=== PATIENT | female | born 2000 | race African-American/Black ===

== ENCOUNTER 2020-05-04 14:07 | Emergency (ER) | payer MEDICAID, SELFPAY ==
[2020-05-04 14:34] VITALS: BP 101/69; PULSE 90; RESP 18; TEMP 37.1; O2SAT 99; BMI 29.9
--- NOTE | 2020-05-04 15:33 | PC.NURSE ---
AP PERFORMING EYE EXAM WITH TETRACAINE DROPS AND WATSON LAMP. NO LACERATION NOTED.
[2020-05-04] MEDS: tetracaine 0.5% Op Soln 4 mL Btl 1 DROP EYE-RIGHT (15:42)
[2020-05-04] MEDS: fluorescein 1 mg Strip EYE-RIGHT (15:42)
[2020-05-04] MEDS: eye irrigation 30 mL Btl EYE-BOTH (15:42)
[2020-05-04 15:43] VITALS: BP 102/70; PULSE 88; RESP 17; O2SAT 99
--- NOTE | 2020-05-04 18:42 | W.ED.EYEPROB ---
HPI - Eye Problem General: Chief complaint: Eye Problems Stated complaint: HAD SEIZURE 2 DAYS AGO & INJURED L EYE Time Seen by Provider: 05/04/20 14:29 History of Present Illness: HPI Narrative: 20-year-old female patient presents to the emergency department with left eye issue. Mother reports she has intractable seizures, is monitored by seizure specialist in [place]. Last reported seizure 2 days ago. Mother reports she fell back hit her head. She has not deviated from neurological baseline. Mother reports concern of left eye issue, afraid she may have hurt her eye during the seizure. chief complaint: eye redness and eye injury (Questionable) Onset (ago): day(s) (2) Onset description: sudden Location: left eye Eye Symptoms: redness and pain Place: home Mechanism: direct trauma Severity: mild Severity scale (1-10): 2 Associated symptoms: Reports no associated symptoms; Denies fever(s), headache(s), nausea or vomiting Review of Systems General: Reports: 10 or more systems reviewed and unremarkable except in HPI and below Const: Denies: fever(s), chills or diaphoresis Eyes: Denies: blurry vision or eye redness ENMT: Denies: throat pain, dental pain or disequilibrium Card: Denies: chest pain, palpitations or irregular heart rhythm Resp: Denies: dyspnea, productive cough, non-productive cough or wheezing GI: Denies: abdominal pain, nausea or vomiting : Denies: difficulty voiding or dysuria Musc: Denies: back pain Skin/Breast: Denies: rash or pruritus Neuro: Denies: headache(s), weakness in extremities or behavioral changes Dre/Lymph: Denies: easy bruising Physical Exam Const: COMMON NORMALS: no acute distress, patient oriented x3, healthy appearing and alert GENERAL APPEARANCE: cooperative, comfortable and well hydrated HENMT: COMMON NORMALS: normocephalic, atraumatic, EAC's normal, TM's normal bilaterally, Normal external nose present, Normal nasal mucous membranes and turbinates present and moist oral mucous membranes HEAD & SCALP: normocephalic and atraumatic NOSE: Normal external nose present and Normal nasal mucous membranes and turbinates present EXTERNAL AUDITORY CANAL: EAC's normal TYMPANIC MEMBRANE: TM's normal bilaterally Eye: COMMON NORMALS: Equal, round and reactive pupils present, EOMs intact bilaterally and conjunctivae normal GENERAL EYE: appearance normal, both eyes and all related structures PERIORBITAL: periorbital findings abnormal (Left upper eyebrow with slight swelling, nontender, no erythema) positive left EYELID: eyelids normal (External) CONJUNCTIVA: Yes conjunctivae normal SCLERA: sclerae normal CORNEA: Yes corneas normal, fluorescein used (Negative corneal abrasion noted) and other (Chalazon noted with inverted left eyelid exam, small, negative erythema or purulent drainage) PUPIL: Yes Equal, round and reactive pupils present DIRECT OPHTHALMOSCOPY: No photophobia Neck/C-Spine: COMMON NORMALS: full ROM and no lymphadenopathy GENERAL: Yes normal visual inspection and Yes trachea midline CERVICAL SPINE: Yes cervical ROM normal Lymph: LYMPHATIC: no lymphadenopathy noted Chest: COMMONS NORMALS: normal inspection of the chest Resp: COMMON NORMALS: normal respiratory effort and clear to auscultation bilaterally AUSCULTATION: clear to auscultation bilaterally Cardio: COMMON NORMALS: regular rhythm, S1 normal heart sound present and S2 normal heart sound present RHYTHM: regular rhythm HEART SOUNDS: S1 normal heart sound present and S2 normal heart sound present GI: COMMON NORMALS: Soft to palpation and non-tender INSPECTION: Yes normal to inspection PALPATION: Yes Soft to palpation : COMMON NORMALS: Yes no CVA tenderness BLADDER/KIDNEY EXAM: Yes no CVA tenderness Back/Pelvis: COMMON NORMALS: no CVA tenderness and thoracic and lumbar spine normal to inspection Extremity: COMMON NORMALS: normal to inspection and capillary refill normal Neuro: COMMON NORMALS: patient oriented x3 and no focal motor deficits SENSORIUM/ORIENTATION: Yes alert Psych: COMMON NORMALS: mental status grossly normal, Normal thought process present and cooperative ACTIVITY/MOTOR BEHAVIOR: Yes appropriate eye contact THOUGHT PROCESS: Normal thought process present Skin: COMMON NORMALS: no rashes or lesions noted and turgor normal GENERAL SKIN EXAM: no rashes or lesions noted and turgor normal Course ED course: 20-year-old female patient presents to the emergency department with left eye concern. Mother reports patient experienced seizure 2 days ago, noted left upper eyebrow swelling, negative fluorescein stain, negative corneal abrasion, left eyelid with small chalazon with negative erythema or drainage. Placed on polymyxin B drops, advised follow-up if not improved, mother verbalized understanding. Patient has longstanding history of intractable seizures. She is on numerous anti-seizure medications, mother reports does not need serology values completed as she has a seizure specialist. Her mother has no further concerns, she remains at baseline neurologically, patient is nonverbal, cared for by her mother. Vital Signs: Vital signs: Vital Signs Temperature 98.8 F 05/04/20 14:34 Pulse Rate 88 05/04/20 15:43 Respiratory Rate 17 05/04/20 15:43 Blood Pressure 102/70 05/04/20 15:43 Pulse Oximetry 99 05/04/20 15:43 Discharge Plan Discharge Patient Disposition: Home Clinical Impression: Intractable generalized seizure disorder, Chalazion left upper eyelid Condition: Stable Prescriptions: New polymyxin B sulf-trimethoprim 10,000 unit- 1 mg/mL drops 1 drop ophthalmic (eye) QID 7 Days Qty: 10 RF: 0 Discharge Orders: Discharge Order (Routine); Ordered 05/04/20 Ordered By: Lori Lilly Patient Instructions: Chalazion (ED), Epilepsy (ED) Activity Restrictions/Additional Instructions: Warm compresses to the left eye several times daily Continue use of eyedrops for full 7 days Return to the emergency department if you develop redness of the orbit of the eye, pain with eye movement or decreased vision of the left eye Continue follow-up with seizure specialist Discharge Date/Time: 05/04/20 15:48 Coding Level of Care Code ED Refrigerating Engineer Head for Shani Ybarra
== END 2020-05-04 15:48 | disposition home or self-care (01) ==
PROVIDERS: Emergency Provider Nurse Practitioner Family
DX: G40.419 Other generalized epilepsy and epileptic syndromes, intractable, without status epilepticus (principal); H00.14 Chalazion left upper eyelid
CPT/HCPCS: 12345; 99282

== ENCOUNTER 2021-12-11 14:24 | Emergency (ER) | payer MEDICAID, SELFPAY ==
[2021-12-11 14:26] VITALS: BP 114/78; PULSE 73; RESP 18; TEMP 36.4; O2SAT 100; BMI 28.3
--- NOTE | 2021-12-11 14:46 | CT_ITS ---
WS: [id number] CT LUMBAR SPINE, noncontrast. HISTORY: fall TECHNIQUE: Contiguous 2.5 mm axial imaging are performed. Sagittal and coronal reformats are submitte d and reviewed. All CT scans at [facility] use at least one of these dose optimization techni ques: automated exposure control; mA and/or kV adjustment per patient size (includes targeted exams w here dose is matched to clinical indication); or iterative reconstruction. IV contrast: None DLP: 1819.89 mGy.cm COMPARISON: None available. Normal lumbar alignment with no loss of disc space height or vertebral body height. L1-2: Normal. L2-3: Normal. L3-4: Normal. L4-5: Normal. L5-S1: Very shallow RIGHT foraminal disc protrusion. No stenosis. Visualized retroperitoneum is normal. CT/CT lumbar spine wo con* [id number] IMPRESSION: No acute lumbar spine fracture.
--- NOTE | 2021-12-11 14:46 | CT_ITS ---
WS: [id number] CT HEAD NONCONTRAST HISTORY: Headache. Fall from 5 foot ladder. TECHNIQUE: Contiguous axial imaging performed through the brain in 2.5 mm imaging. Bone and soft tiss ue windows. Sagittal and coronal reformats reviewed. All CT scans at [facility] use at least one of these dose optimization techniques: automated exposure control; mA and/or kV adjustment per pa tient size (includes targeted exams where dose is matched to clinical indication); or iterative recon struction. DLP: 939.56 mGy.cm COMPARISON: None available. No acute intracranial hemorrhage, midline shift or mass effect. Focal area of atrophy and encephalomalacia within the LEFT temporal lobe. By history patient had prio r surgery and has been treated for a brain neoplasm. Mild volume loss in the LEFT cerebrum. Ventricles: No hydrocephalus. There is mild dilatation of the LEFT lateral ventricle due to the ence phalomalacia. Paranasal sinuses: As visualized are clear. Mastoid air cells: Well pneumatized. Calvarium and scalp: Postsurgical changes and craniotomy LEFT temporal bone. Additional postsurgical changes adjacent to the RIGHT temporal bone. CT/CT head wo con* [id number] IMPRESSION: 1. No acute intracranial hemorrhage or edema. 2. Postoperative changes with encephalomalacia LEFT temporal lobe. No mass eff ect.
--- NOTE | 2021-12-11 14:46 | CT_ITS ---
WS: [id number] CT THORACIC SPINE HISTORY: fall TECHNIQUE: Contiguous 2.5 mm axial images are reviewed to thoracic spine. Images are reformatted in s agittal and coronal planes. All CT scans at [facility] use at least one of these dose optimiz ation techniques: automated exposure control; mA and/or kV adjustment per patient size (includes targ eted exams where dose is matched to clinical indication); or iterative reconstruction. DLP: 2124.89 mGy.cm COMPARISON: None available. Normal thoracic alignment. No fractures. Disc spaces are well preserved. Spinous processes and transv erse processes are intact. No central or foraminal stenosis or acute-appearing disc herniations. Para vertebral soft tissues are normal. CT/CT thoracic spin wo con* [id number] IMPRESSION: Negative thoracic spine CT. No fracture.
--- NOTE | 2021-12-11 14:46 | CT_ITS ---
WS: [id number] CT CERVICAL SPINE HISTORY: fall TECHNIQUE: Contiguous 2.5 mm axial imaging performed through the entire cervical spine. Sagittal and coronal reformats also performed. All CT scans at [facility] use at least one of these dose o ptimization techniques: automated exposure control; mA and/or kV adjustment per patient size (include s targeted exams where dose is matched to clinical indication); or iterative reconstruction. DLP: 724.07 mGy.cm COMPARISON: None available. Normal cervical alignment. Craniocervical junction, atlantodental interval and C1-C2 alignment is nor mal. C2-C3: Normal. C3-C4: Moderate size osteophyte narrowing the RIGHT foramen. Moderate stenosis. C4-C5: Normal. C5-C6: Normal. C6-C7: Normal. C7-T1: Normal. Soft tissues are normal. Lung apices are clear. CT/CT cervical spin wo con* [id number] IMPRESSION: No acute cervical spine fracture.
--- NOTE | 2021-12-11 15:00 | W.ED.FALL ---
HPI - Fall General: Chief Complaint: Fall Stated Complaint: fall/head pain Time Seen by Provider: 12/11/21 14:41 Source: patient Mode of arrival: ambulatory Limitations: no limitations History of Present Illness: 21-year-old female with a history of special needs that caregiver states that she is outside painting and she is trying to get on the ladder she states she climbed up a ladder roughly 3 to 4 feet and fell off into the house and then onto a pile of dirt. Patient has been complaining of slight headache along with neck and back pain. She is currently resting comfortably no other injuries noted she denies any chest or abdominal pain. Associated symptoms-after fall: Reports neck pain; Denies abdominal pain, chest pain or headache(s) Review of Systems Const: Denies: fever(s), chills, body aches or change in appetite Eyes: Denies: blurry vision or eye discomfort ENMT: Denies: throat pain or dental pain Card: Denies: chest pain Resp: Denies: dyspnea GI: Denies: abdominal pain, nausea, vomiting or diarrhea : Denies: dysuria Musc: Reports: neck pain and back pain Skin/Breast: Denies: rash Neuro: Denies: headache(s) Psych: Denies: depression Dre/Lymph: Denies: easy bruising All/Imm: Denies: urticaria Physical Exam Const: COMMON NORMALS: no acute distress and healthy appearing HENMT: COMMON NORMALS: normocephalic and atraumatic HEAD & SCALP: normocephalic and atraumatic Eye: COMMON NORMALS: Equal, round and reactive pupils present and EOMs intact bilaterally PUPIL: Yes Equal, round and reactive pupils present Neck/C-Spine: COMMON NORMALS: full ROM and supple Chest: COMMONS NORMALS: normal inspection of the chest and normal palpation of entire chest wall Resp: COMMON NORMALS: normal respiratory effort, No retractions, No use of accessory muscles and clear to auscultation bilaterally AUSCULTATION: clear to auscultation bilaterally Cardio: COMMON NORMALS: regular rate, regular rhythm and No murmurs present (Cardio) RATE: regular rate RHYTHM: regular rhythm GI: COMMON NORMALS: Normal to inspection, nondistended, normoactive bowel sounds present, Soft to palpation, non-tender and no masses PALPATION: Yes Soft to palpation Extremity: COMMON NORMALS: normal to inspection and full ROM Neuro: COMMON NORMALS: moves all extremities and no focal motor deficits Psych: COMMON NORMALS: mental status grossly normal, Normal thought process present and cooperative THOUGHT PROCESS: Normal thought process present Skin: COMMON NORMALS: no rashes or lesions noted and no wounds GENERAL SKIN EXAM: no rashes or lesions noted Course Vital Signs: Vital signs: Vital Signs Temperature 97.6 F 12/11/21 14:26 Pulse Rate 73 12/11/21 14:26 Respiratory Rate 18 12/11/21 14:26 Blood Pressure 114/78 12/11/21 14:26 Pulse Oximetry 100 12/11/21 14:26 MDM - Fall Medical Decision Making Patient presents here with back pain after a fall she is well-appearing here with no obvious injuries her imaging here is normal patient is amatory she is stable for discharge follow-up with PCP and return if worsening. Lab Data Radiology Impressions Cervical Spine CT 12/11/21 14:46 IMPRESSION: No acute cervical spine fracture. Head CT 12/11/21 14:46 IMPRESSION: 1. No acute intracranial hemorrhage or edema. 2. Postoperative changes with encephalomalacia LEFT temporal lobe. No mass effect. Lumbar Spine CT 12/11/21 14:46 IMPRESSION: No acute lumbar spine fracture. Thoracic Spine CT 12/11/21 14:46 IMPRESSION: Negative thoracic spine CT. No fracture. Discharge Plan Discharge Patient Disposition: Home Clinical Impression: Fall, Lumbar strain Condition: Stable Prescriptions: New Naprosyn 500 mg tablet 500 mg PO BID PRN (Reason: pain) Qty: 20 0RF Discharge Orders: Discharge ED (Routine); Ordered 12/11/21 Ordered By: Ira Bradley Discharge Diet: Advance as tolerated Discharge Activity: Resume usual activity Patient Instructions: Contusion in Adults (ED) Coding Level of Care Code ED [place] [employer] Leader for [employer] Fwd Exam Comprehensive
[2021-12-11] MEDS: HYDROcodone-acetaminophen 5-325 mg Tablet 1 TAB PO (16:04)
== END 2021-12-11 16:17 | disposition home or self-care (01) ==
PROVIDERS: Emergency Provider Emergency Medicine; PCP Psychiatry & Neurology Neurology
DX: S39.012A Strain of muscle, fascia and tendon of lower back, initial encounter (principal); W11.XXXA Fall on and from ladder, initial encounter
CPT/HCPCS: 70450; 72125; 72128; 72131; 99283

== ENCOUNTER 2022-10-21 22:02 | Emergency (ER) | payer MEDICAID, SELFPAY ==
[2022-10-21 22:11] VITALS: BP 103/64; PULSE 114; RESP 16; O2SAT 97
[2022-10-21 23:08] VITALS: RESP 16
[2022-10-21 23:13] LABS: Basophils % 0.2 %; Eosinophils # 0.1 10^3/uL (0.0-0.8); Eosinophils % 1.2 %; Hematocrit 37.4 % (37.0-47.0); Hemoglobin 12.6 g/dL (11.5-15.3); Lymphocytes % 16.2 %; Mean Corpuscular HGB Conc 33.7 g/dL (30.0-36.0); Mean Corpuscular Hemoglobin 29.1 pg (28.0-34.0); Mean Corpuscular Volume 86.4 fl (81-99); Mean Platelet Volume 10.7 fL (7.4-10.4); Monocytes # 0.6 10^3/uL (0.2-0.9); Monocytes % 4.8 %; Neutrophils # 9.37 10^3/uL (1.8-7.7); Neutrophils % 77.3 %; Nucleated Red Blood Cells % 0 %; Platelet Count 248 10^3/cmm (130-400); Red Blood Count 4.33 10^6/uL (4.1-5.3); Red Cell Distribution Width 12.5 % (12.1-15.1); White Blood Count 12.1 10^3/uL (4.0-10.0)
[2022-10-21 23:43] LABS: Alanine Aminotransferase 30 U/L (0-33); Albumin Level 4.1 g/dL (3.5-5.2); Alkaline Phosphatase 70 U/L (35-105); Anion Gap 15.4 (5-19); Aspartate Amino Transferase 18 U/L (0-32); Blood Urea Nitrogen 8 mg/dL (6-20); Calcium 9.1 mg/dL (8.5-10.5); Carbon Dioxide 22 mmol/L (22-29); Chloride 107 mmol/L (98-107); Glomerular Filtration Rate 106.6 mL/min (90-130); Glucose 95 mg/dL (65-115); Osmolality Calculated 290 mOsm/kg (285-295); Potassium 3.4 mmol/L (3.5-5.1); Sodium 141 mmol/L (136-145); Thyroid Stimulating Hormone 0.58 uIU/mL (0.27-4.20); Total Bilirubin 0.4 mg/dL (0.15-1.2); Total Protein 7.1 g/dL (6.6-8.7)
[2022-10-21 23:46] LABS: Acetaminophen < 5.0 ug/mL (10-30); Alcohol Level < 10 mg/dL (0-10); Salicylate < 0.3 mg/dL (3-10)
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
--- NOTE | 2022-10-22 01:56 | PC.NURSE ---
Mother crying in the lucas. Asked if she was okay, mother states, NO! I'm scared that they will seen her home . Provider notified.
[2022-10-22] MEDS: CLONazepam 1 mg Tablet PO (02:01)
[2022-10-22] MEDS: levETIRAcetam 500 mg Tablet 1000 MG PO (02:01)
[2022-10-22 02:08] VITALS: BP 101/68; PULSE 81; RESP 14; O2SAT 97
--- NOTE | 2022-10-22 07:38 | PC.NURSE ---
Received report from Brock Bernard RN. Pt is sound asleep in bed. PSA at bedside. Breakfast tray is ordered, waiting for psychiatrist to come evaluate patient.
[2022-10-22 07:39] VITALS: PULSE 70; RESP 17
--- NOTE | 2022-10-22 11:48 | PC.NURSE ---
pt on left side resting comfortably. PSA at bedside.
--- NOTE | 2022-10-22 11:50 | PC.NURSE ---
Pt's mother called to check on patient and to inquire if we have given her the 0700 meds. I let mother know that patient has been asleep this morning, and that the psychiatrist has not been in yet this morning. Reported to mother that we will call her when doctor visits with patient.
[2022-10-22 12:24] VITALS: BP 93/57; PULSE 96; RESP 16; O2SAT 96
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
--- NOTE | 2022-10-22 16:00 | PC.NURSE ---
Pt sitting up in bed. Calm and pleasant. Pt denies any needs. Mother stated she was 15 minutes away.
--- NOTE | 2022-10-22 16:30 | PC.NURSE ---
Pt's mother arrived to ED. When mother arrived, mother would not go in to see daughter - she asked to speak with physician first. Dr. parson was requested to come and speak with mother. While mother and doctor spoke at desk, I was in the room with patient explaining to her that i needed to get her dressed so she could be sent home. Patient folded her arms acrossed her chest and denied wanting to get dressed. Pt then said, I'm going to have a seizure and began to lay back in seizure-like movements. Dr. Parson was called to bedside mid-seizure - he and mother came in. Pt stopped the movements and then urinated and kicked her legs up to where urine splashed on bottom of her bed, on the floor, on my sleeve, and on physician. Mother asked if pt had her home meds - I stated that she did not. Patient's home medications were updated in the chart, were locked up with her belongings, but were not continued by psychiatrist as the decision for patient to be discharged home was the plan. This was explained to mother and Dr. Parson stated to mother and this nurse that patient can have her home medications as she is being discharged. Patient would not comply with nurse attempting to help her get cleaned up and change clothes/bedding. Mother stated to this nurse that she wanted someone to talk to from patient relations and began to take pictures of the urine on the floor, the patient's scrubs with urine. Patient had coffee stains on her bed from spilling coffee earlier today while eating her meals. Mother stated to this nurse, 'I will not be signing discharge or allowing her to be discharged until I get someone from patient relations . This nurse stated to mother that I will go and airfield manager and risk management at this time, and left patient room. Patient was still only long term dressed. Medications left in mother's possession. Dr. Parson made aware and is still planning to discharge patient. Aura from Risk management is on her way. Virgie, nurse medical staff services manager, is aware as well, and Tiffany - data warehouse architect.
--- NOTE | 2022-10-22 18:04 | PC.NURSE ---
PT'S MOTHER WALKED OUT OF ED UNIT ON PHONE.
--- NOTE | 2022-10-22 18:38 | PC.NURSE ---
RISK MANAGEMENT HERE ON FLOOR STILL AND HAS HEARD FROM [facility] ABOUT PT NOT HAVING A 96 HR HOLD. MOTHER HAS BEEN ON PHONE WITH CHASSIS MECHANIC OF [facility]. PATIENT IS SITTING IN CHAIR IN HER ROOM AT THIS TIME. SHE DENIES HAVING TO USE THE RESTROOM, WARM BLANKET, OR DRINK.
--- NOTE | 2022-10-22 19:15 | PC.NURSE ---
pt sitting at bedside eating pudding. Denies needs at this time
--- NOTE | 2022-10-22 19:49 | PC.NURSE ---
pt mother approached desk and asked if her daughter could be given her night time medications for seizures. MD aware. Mother gave medications with nurse at bedside. Pt mother told this nurse that she has called the crisis center, the police, and social worker assistant and stated that she would not be leaving with her daughter at this time. She reports that she feels her daughter is a danger to herself and her other daughter at home as well as the patient is a harm to her own self. Gas Meter Installer Helper Tiffany notified of mothers statements.
[2022-10-22 21:18] LABS: HCG, Serum Qual Negative (Negative)
[2022-10-22 21:37] VITALS: BP 97/59; PULSE 88; RESP 16; TEMP 36.7; O2SAT 96
--- NOTE | 2022-10-22 23:42 | PC.NURSE ---
Rounded on patient, pt and mother listening to music together. Mother and pt denies any needs other than a doctors note at this time.
--- NOTE | 2022-10-22 23:45 | PC.NURSE ---
Upon rounding on pt to see if her of her mother needed anything. The mother stated that she wanted a doctors noted stating she was psychiatrically cleared . This nurse notified the on shift Dr of the request of the patients mother. This nurse was given instructions to contact senior housekeeper about the request because she already had discharge paperwork from the previous Dr. This nurse called and informed the senior housekeeper of the pt mothers request. This nurse, Patito RN, custodial supervisor Kiki RN and Connor training designer for senior housekeeper went to pt room to speak with pt mother about the request. Pt mother expressed concerns that pt was not appropriately cared for by the day shift staff. Pt mother stated she wanted a note stating that she is medically and psychiatrically cleared so that if the pt hurt her friends or her that You guys would be held liable for that . Pt mother educated that pt was have received a psychiatric evaluation that cleared her to be discharged but the hospital is not responsible for pt actions. Pt mother expressed concerns about teenage child waiting in vehicle, mother was offered accommodation and food for child waiting in car. Pt mother expressed concerns about the pt teeth not being evaluated because more of them were broke . Pt mother told staff was not informed by pt, law enforcement, or the pt mother about pt teeth, when asked when her teeth broke mother of pt stated prior to the police being called .
--- NOTE | 2022-10-23 | PC.NURSE ---
Pt mother asked rounding nurse Jania for a letter stating that her daughter was medically and psychiatrically cleared to go home. Myself along with Jania Rn, Kiki Aguilar Bessemer Converter Operator, and Connor who is in training for [employer] Con[employer] Operator went to the bedside to discuss with the patients mother the following: Pt mother was instructed that discharge paperwork was the only official paperwork that we had to offer her at this time. Pt mother was redirected and reassured by staff after voicing concerns and complaints about the day shift care throughout the day. Staff at bedside explained that we could only help accommodate her from this point forward and assured her that she could communicate any needs that she or the patient had. When mother asked what care she would be given tonight from a doctor, staff explained that the patient had been discharged from a medical standpoint and would continued to be observed for the duration of her ER stay and also that if anything changed in the patients status that warranted a doctors intervention or care that one would be notified immediately. Pt mother also reported she was upset she did not ever speak to Dr Navarro today after being told by the night ER Dr that he would call her in the morning . Mother reported that no one ever called and she was just discharged without care . Pt mother was advised that we would contact Dr Navarro and make him aware that the mother wanted to speak to him about the patients history and care. Pt mother voiced concerns about the safety and comfort of her daughter that was waiting out in the car . The staff at bedside offered to make a place for the daughter to stay inside the building as well as offering comfort items like food, drink and a warm blanket. Mother denied need for anything at this time. Pt mother also expressed concern that she wanted to be connected with social work coordinator or a child welfare social worker. She was instructed that one would be notified on the oncoming shift tomorrow about her request. Pt mother asked this nurse why were my daughters teeth never evaluated? I asked the mother when she damaged her teeth and she stated prior to coming in last night She continued to voice concerns that the teeth were not evaluated. I explained to the mother that there was not ever and indication or awareness made to ever evaluate the teeth. The patient did not make any mention of her teeth upon arrival, nor did the police, or the patients mother once she arrived last night. That the [facility] staff had no way of knowing the baseline condition of the patients teeth to know that anything had changed or needed evaluated. Pt mother also requested a letter from [facility] stating that if anything happens to her or her family or they were harmed in any way after the patient was discharged by [facility], that [facility] would be responsible for any harm or behavior caused by the patient. I explained to the patient mother that the patient has not been aggressive, violent, or uncooperative while in our care.
[2022-10-23 01:16] VITALS: BP 110/76; PULSE 97; RESP 16; TEMP 37.1; O2SAT 97
--- NOTE | 2022-10-23 01:26 | PC.NURSE ---
Pt mother approached nurses station and requested paperwork to leave. Discharge paperwork was provided along with prescription and education given. Pt mother requested that social work still call her to help set up appointments as well as communication from Dr Navarro. Pt was offered opportunity to use restroom before discharge and then was taken outside in a wheelchair. Pt Belongings were returned to patient mother earlier per patient mother when staff attempted to give back patients clothing and medications.
--- NOTE | 2022-10-23 10:01 | DCPLANNER ---
software asset manager had message to put patients mother in contact with resources for long term care administrator residential placement. software asset manager spoke with patients mother, gave her the phone numbers to [facility] [phone] and the [facility] office [phone].
== END 2022-10-23 01:29 | disposition home or self-care (01) ==
PROVIDERS: Emergency Medicine; Emergency Provider Family Medicine; PCP Psychiatry & Neurology Neurology
DX: R46.89 Other symptoms and signs involving appearance and behavior (principal); Z87.820 Personal history of traumatic brain injury; R56.9 Unspecified convulsions
CPT/HCPCS: 80053; 80307; 84443; 84703; 85025; 99283